=== PATIENT | female | born 1990 | race Hispanic/Latino ===

== ENCOUNTER 2021-03-06 16:37 | Emergency (ER) | payer BC ==
[~2021-03-06] VITALS: Ht 160 cm; Wt 64.4 kg
[2021-03-06 17:57] LABS: BASOPHILS % (AUTO) 0.2 % (0.0-5.0); EOSINOPHILS % (AUTO) 1.1 % (0.0-8.0); HEMATOCRIT 38.3 % (36-48); LYMPHOCYTES % (AUTO) 16.9 % (21.0-51.0); MEAN CORPUSCULAR HEMOGLOBIN 31.1 pg (27.0-33.0); MEAN CORPUSCULAR HGB CONC 33.4 g/dL (32.0-36.0); MEAN CORPUSCULAR VOLUME 93.2 fL (79-99); MONOCYTES % (AUTO) 5.6 % (3.0-13.0); NEUTROPHILS % (AUTO) 75.6 % (40.0-77.0); PLATELET COUNT (AUTO) 235 K/uL (130-400); RED BLOOD CELL COUNT(AUTO) 4.11 MIL/uL (4.00-5.50); RED CELL DISTRIBUTION WIDTH 13.6 % (11.0-15.5); WHITE BLOOD COUNT (AUTO) 10.3 K/uL (4.8-10.8)
[2021-03-06 19:53] VITALS: BP 133/88
== END 2021-03-06 20:01 | disposition home or self-care (01) ==
LOC: EDBD 16:37 → EDH 16:37
DX: O20.0 Threatened abortion (principal); Z3A.17 17 weeks gestation of pregnancy
CPT/HCPCS: 36415; 76805; 85025; 86900; 86901

== ENCOUNTER 2021-07-06 14:15 | Observation (INO) | payer BC ==
[~2021-07-06] VITALS: Ht 160 cm; Wt 75.7 kg
== END 2021-07-06 16:03 | disposition home or self-care (01) ==
LOC: LDH 14:15
PROVIDERS: ADMIT Specialist; ATTEND Specialist
DX: O26.893 Other specified pregnancy related conditions, third trimester (principal); R10.9 Unspecified abdominal pain; Z3A.35 35 weeks gestation of pregnancy
CPT/HCPCS: 59025; 76819; G0378

== ENCOUNTER 2021-07-24 21:27 | Inpatient (IN) | payer BC ==
[~2021-07-24] VITALS: Ht 160 cm; Wt 75.7 kg
[2021-07-24 23:00] LABS: APPEARANCE,URINE CLEAR (CLEAR); BILIRUBIN,URINE NEGATIVE (NEGATIVE); COLOR,URINE YELLOW (YELLOW); GLUCOSE, URINE (UA) NEGATIVE (NEGATIVE); KETONES,URINE 5 mg/dL (NEGATIVE); LEUKOCYTE ESTERASE ,URINE NEGATIVE (NEGATIVE); NITRATE,URINE NEGATIVE (NEGATIVE); OCCULT BLOOD,URINE MODERATE (NEGATIVE); PH,URINE 6.5 (5.0-8.0); PROTEIN,URINE NEGATIVE (NEGATIVE)
[2021-07-24] MEDS ORDERED: NALOXONE HCL 0.4 MG/1 ML ML IV PRN (23:00)
[2021-07-24] MEDS ORDERED: EPHEDRINE SULFATE 50 MG/ML AMPULE IVP PRN (23:00)
[2021-07-24] MEDS ORDERED: AMPICILLIN 2GM+NS 100ML 100 ML IV SCH (23:00)
[2021-07-24] MEDS ORDERED: LACTATED RINGERS 500 ML 500 ML IV PRN (23:00)
[2021-07-24] MEDS ORDERED: LACTATED RINGERS 1000ML 1,000 ML IV PRN (23:00)
[2021-07-24] MEDS ORDERED: OXYTOCIN-LR 20 UNITS/1000 ML 1,000 ML IV SCH (23:00)
[2021-07-24 23:11] LABS: BACTERIA,URINE Few /HPF (None Seen); MUCUS,URINE Few LPF (None Seen); WBC,URINE 0-1 /HPF (0-1)
[2021-07-25 01:33] LABS: HEMATOCRIT 36.7 % (36-48); MEAN CORPUSCULAR HEMOGLOBIN 31.6 pg (27.0-33.0); MEAN CORPUSCULAR HGB CONC 34.6 g/dL (32.0-36.0); MEAN CORPUSCULAR VOLUME 91.3 fL (79-99); RED BLOOD CELL COUNT(AUTO) 4.02 MIL/uL (4.00-5.50); RED CELL DISTRIBUTION WIDTH 13.6 % (11.0-15.5); WHITE BLOOD COUNT (AUTO) 8.5 K/uL (4.8-10.8)
[2021-07-25] MEDS: AMPICILLIN 1GM+NS 50ML 50 ML IV SCH ×6 (03:06→23:30)
[2021-07-25] MEDS ORDERED: OXYTOCIN-LR 20 UNITS/1000 ML 1,000 ML IV SCH (06:00)
[2021-07-25 14:36] LABS: RAPID PLASMA REAGIN NONREACTIVE (NONREACTIVE)
[2021-07-25] MEDS ORDERED: METHYLERGONOVINE MALEATE 0.2 MG/1 ML ML ONE (17:24)
[2021-07-25] MEDS ORDERED: MEASLES/MUMPS/RUBELLA VACCINE, LIVE 0.5 ML/VIAL SQ PRN (18:30)
[2021-07-25] MEDS ORDERED: DIPH,PERTUSS(ACELL),TET VAC/PF 0.5 ML VIAL IM PRN (18:30)
[2021-07-25] MEDS ORDERED: WITCH HAZEL 1 PAD TP PRN (18:30)
[2021-07-25] MEDS ORDERED: BENZOCAINE/LANOLIN/ALOE VERA 60 ML AEROSOL TP PRN (18:30)
[2021-07-25] MEDS ORDERED: ACETAMINOPHEN WITH CODEINE 1 TAB TAB PO PRN (18:30)
[2021-07-25] MEDS ORDERED: ACETAMINOPHEN 325 MG TAB PO PRN (18:30)
[2021-07-25] MEDS ORDERED: LANOLIN 30GM OINTMENT TP PRN (18:30)
[2021-07-25] MEDS: IBUPROFEN 600 MG TABLET PO PRN (19:27)
[2021-07-25 20:13] VITALS: BP 128/87
[2021-07-25] MEDS: DOCUSATE SODIUM 100 MG CAP PO SCH (20:43)
[2021-07-25 23:24] VITALS: BP 117/89
[2021-07-26] MEDS: AMPICILLIN 1GM+NS 50ML 50 ML IV SCH ×2 (01:55→01:56)
[2021-07-26] MEDS: IBUPROFEN 600 MG TABLET PO PRN ×2 (02:10→09:49)
[2021-07-26 03:12] VITALS: BP 94/60
[2021-07-26] MEDS ORDERED: PREN-154 PO (04:06)
[2021-07-26 07:16] VITALS: BP 110/83
[2021-07-26] MEDS: DOCUSATE SODIUM 100 MG CAP PO SCH (09:48)
[2021-07-26 11:27] VITALS: BP 122/82
[2021-07-26 16:52] VITALS: BP 127/77
== END 2021-07-26 19:15 | disposition home or self-care (01) | DRG 807 ==
LOC: LDH 21:27 → WSH 07-25 20:13
PROVIDERS: ADMIT Specialist; ATTEND Specialist
PROC: 10E0XZZ Delivery of Products of Conception, External Approach (ICD-10-PCS; principal; 2021-07-25)
PROC: 10907ZC Drainage of Amniotic Fluid, Therapeutic from Products of Conception, Via Natural or Artificial Opening (ICD-10-PCS; 2021-07-25)
PROC: 3E0234Z Introduction of Serum, Toxoid and Vaccine into Muscle, Percutaneous Approach (ICD-10-PCS; 2021-07-25)
PROC: 3E0334Z Introduction of Serum, Toxoid and Vaccine into Peripheral Vein, Percutaneous Approach (ICD-10-PCS; 2021-07-25)
PROC: 00HU33Z Insertion of Infusion Device into Spinal Canal, Percutaneous Approach (ICD-10-PCS; 2021-07-25)
PROC: 3E0R3BZ Introduction of Anesthetic Agent into Spinal Canal, Percutaneous Approach (ICD-10-PCS; 2021-07-25)
DX: O99.824 Streptococcus B carrier state complicating childbirth (principal); Z37.0 Single live birth; O26.893 Other specified pregnancy related conditions, third trimester; Z3A.38 38 weeks gestation of pregnancy; Z23 Encounter for immunization; Z67.41 Type O blood, Rh negative; Z86.16 Personal history of COVID-19
CPT/HCPCS: 36415; 81001; 83033; 85027; 86592; 86701; 86850; 86900; 86901; 87340; 87390; 90715; A4314; G0378; J0290; J2210; J2590; J2791; J7120